=== PATIENT | female | born 2000 | race Caucasian/White ===

== ENCOUNTER 2018-08-07 00:02 | Emergency (ER) | payer BC, SELFPAY ==
[2018-08-07] MEDS ORDERED: Ibuprofen 200 MG TAB ONE (01:09)
--- NOTE | 2018-08-07 08:21 | RAD ---
LEFT FOOT 3 VIEWS: Date: 08/07/18 INDICATION: Left foot injury. COMPARISON: None. FINDINGS: There is postprocedural change of arthrodesis at the great toe medial cuneiform articulation. Lisfran c alignment is preserved. No acute fracture or subluxation is evident. Postsurgical changes of prior bunionectomy. IMPRESSION: No acute osseous abnormality. Postoperative left foot. POS: BH
== END 2018-08-07 02:19 | disposition home or self-care (01) ==
LOC: ERS 00:02
DX: S90.32XA Contusion of left foot, initial encounter (principal); W22.8XXA Striking against or struck by other objects, initial encounter